=== PATIENT | female | born 1965 | race Caucasian/White ===

== ENCOUNTER → 2024-04-28 06:32 | Day surgery (SDC) | payer OTHER, SELFPAY | LOC: GI 06:32 | PROVIDERS: ATTENDING PHYSICIAN Internal Medicine Gastroenterology | DX: Z12.11 Encounter for screening for malignant neoplasm of colon (principal); K64.0 First degree hemorrhoids | CPT/HCPCS: G0121 ==

== ENCOUNTER → 2025-02-21 13:31 | Outpatient (REF) | payer OTHER, SELFPAY | LOC: HWWDC 13:31 | PROVIDERS: ATTENDING PHYSICIAN Internal Medicine | DX: Z12.31 Encounter for screening mammogram for malignant neoplasm of breast (principal) | CPT/HCPCS: 77063; 77067 ==

== ENCOUNTER → 2025-04-17 09:53 | Outpatient (REF) | payer OTHER, SELFPAY | LOC: HWRAD 09:53 | PROVIDERS: ATTENDING PHYSICIAN Internal Medicine | DX: M81.0 Age-related osteoporosis without current pathological fracture (principal) | CPT/HCPCS: 77080 ==